=== PATIENT | male | born 1940 | race Caucasian/White ===

== ENCOUNTER 2016-08-12 13:32 | Emergency (ER) | payer MEDICARE ==
[~2016-08-12] VITALS: Ht 177.8 cm; Wt 93.0 kg
[2016-08-12 13:49] VITALS: BP 175/93; PULSE 64; RESP 16; TEMP 98.1; O2SAT 96
[2016-08-12] MEDS ORDERED: METO25TA6 PO (17:34)
[2016-08-12] MEDS ORDERED: LIPI10TA PO (17:34)
--- NOTE | 2016-08-12 17:46 | PD ---
HPI Chief Complaint: General Weakness Time Seen by Provider: 17:28 Travel History International Travel<30 days: No Contact w/Intl Traveler<30days: No Traveled to known affect area: No History of Present Illness HPI This 75-year-old male says that he felt lightheaded this morning. He stood up and felt very weak and had to lay down. He checked his blood pressure 190/90. He has a history of hypertension and has been given a prescription for metoprolol 25 mg but generally does not take it. He did take a tablet today he vomited when he got here and he vomited what he had had for breakfast. He had been having a lot of gas and burping. He had a stroke 3 or 4 years ago. He was in the hospital when he had a stroke and was treated with TPA with good results. He had a subsequent left carotid endarterectomy. He has not had any weakness today. He he does take aspirin daily. He did drive from [place] over the last 2 days, driving 11 hours a day [facility] Past Medical History Cardiovascular Problems: Yes (HTN ) High Cholesterol: Yes Cerebrovascular Accident: Yes Hypertension: Yes Inguinal Hernia: Yes Influenza Vaccination: No Past Surgical History Abdominal Surgery: Yes (INGUINAL HERNIA) Other Surgery: Yes (CAROTID ENDARTECTOMY) Social History Alcohol Use: No Tobacco Use: No Substance Use: No Allergies-Medications (Allergen,Severity, Reaction): Coded Allergies: Penicillin (Verified Allergy, Intermediate, Rash, 08/12/16) Reported Meds & Prescriptions Reported Meds & Active Scripts Active Reported Lipitor (Atorvastatin Calcium) 10 Mg Tab 10 Mg PO HS Metoprolol Succinate ER 24 HR (Metoprolol Succinate) 25 Mg Tab 25 Mg PO DAILY Review of Systems General / Constitutional: No: Fever, Chills Eyes: No: Diploplia, Blurred Vision HENT: Positive: Lightheadedness, No: Headaches Cardiovascular: No: Chest Pain or Discomfort, Palpitations Respiratory: No: Shortness of Breath Gastrointestinal: No: Nausea, Vomiting Genitourinary: No: Urgency Skin: No Rash Neurologic: Positive: Weakness, No: Syncope, Focal Abnormalities Hematologic/Lymphatic: No: Easy Bruising Physical Exam Narrative GENERAL: Well-developed male SKIN: Warm and dry. HEAD: Atraumatic. Normocephalic. EYES: Pupils equal and round. No scleral icterus. No injection or drainage. ENT: No nasal bleeding or discharge. Mucous membranes pink and moist. NECK: Trachea midline. No JVD. CARDIOVASCULAR: Regular rate and rhythm. No murmur appreciated. RESPIRATORY: No accessory muscle use. Clear to auscultation. Breath sounds equal bilaterally. GASTROINTESTINAL: Abdomen soft, non-tender, nondistended. Hepatic and splenic margins not palpable. MUSCULOSKELETAL: No obvious deformities. No clubbing. No cyanosis. No edema. NEUROLOGICAL: Awake and alert. No obvious cranial nerve deficits. Motor grossly within normal limits. Normal speech. PSYCHIATRIC: Appropriate mood and affect; insight and judgment normal. Data Data Last Documented VS Vital Signs Date Time Temp Pulse Resp B/P Pulse Ox O2 Delivery O2 Flow Rate FiO2 08/12/16 17:28 64 16 97 Room Air 08/12/16 13:49 98.1 175/93 Orders Electrocardiogram (08/12/16 17:41) Complete Blood Count With Diff (08/12/16 17:41) Comprehensive Metabolic Panel (08/12/16 17:41) Troponin I (08/12/16 17:41) Magnesium (Mg) (08/12/16 17:41) Labs Laboratory Tests Test 08/12/16 17:45 White Blood Count 11.0 TH/MM3 Red Blood Count 5.57 MIL/MM3 Hemoglobin 17.0 GM/DL Hematocrit 51.9 % Mean Corpuscular Volume 93.3 FL Mean Corpuscular Hemoglobin 30.6 PG Mean Corpuscular Hemoglobin 32.8 % Concent Red Cell Distribution Width 13.2 % Platelet Count 230 TH/MM3 Mean Platelet Volume 9.1 FL Neutrophils (%) (Auto) 89.1 % Lymphocytes (%) (Auto) 7.3 % Monocytes (%) (Auto) 3.2 % Eosinophils (%) (Auto) 0.2 % Basophils (%) (Auto) 0.2 % Neutrophils # (Auto) 9.8 TH/MM3 Lymphocytes # (Auto) 0.8 TH/MM3 Monocytes # (Auto) 0.4 TH/MM3 Eosinophils # (Auto) 0.0 TH/MM3 Basophils # (Auto) 0.0 TH/MM3 CBC Comment DIFF FINAL Differential Comment Sodium Level 141 MEQ/L Potassium Level 4.0 MEQ/L Chloride Level 106 MEQ/L Carbon Dioxide Level 26.2 MEQ/L Anion Gap 9 MEQ/L Blood Urea Nitrogen 13 MG/DL Creatinine 0.97 MG/DL Estimat Glomerular Filtration 75 ML/MIN Rate Random Glucose 123 MG/DL Calcium Level 8.8 MG/DL Magnesium Level 2.1 MG/DL Total Bilirubin 0.7 MG/DL Aspartate Amino Transf 13 U/L (AST/SGOT) Alanine Aminotransferase 24 U/L (ALT/SGPT) Alkaline Phosphatase 72 U/L Troponin I LESS THAN 0.02 NG/ML Total Protein 7.6 GM/DL Albumin 3.9 GM/DL MDM Medical Decision Making Medical Screen Exam Complete: Yes Emergency Medical Condition: Yes Medical Record Reviewed: Yes Differential Diagnosis Differential includes dehydration, electrolyte imbalance, generalized weakness Narrative Course Lab work is unremarkable. EKG shows normal sinus rhythm. While here the patient was feeling well. I suspect she may have been feeling weak secondary to fall drive he just completed there is no evidence of DVT and no shortness of breath. He does have some elevation of his blood pressure. He has a prescription for metoprolol he takes on an as needed basis. The metoprolol earlier today and his blood pressure is 170/81. I have recommended to him that he take the metoprolol daily Diagnosis Primary Impression: Hypertension Qualified Code: I10 - Essential hypertension Additional Instructions: Take metoprolol daily Disposition: DISCHARGE HOME Condition: Stable Moises Hoffman MD Aug 12, 2016 17:46
[2016-08-12 18:03] LABS: CHLORIDE 106 MEQ/L (98-107); SODIUM (NA) 141 MEQ/L (136-145)
[2016-08-12 18:07] LABS: ANION GAP 9 MEQ/L (5-15); BICARBONATE 26.2 MEQ/L (21.0-32.0); BLOOD UREA NITROGEN 13 MG/DL (7-18); MAGNESIUM 2.1 MG/DL (1.5-2.5)
[2016-08-12 18:10] LABS: ALT (GPT) 24 U/L (12-78); AST (GOT) 13 U/L (15-37); GLOMERULAR FILTRATION RATE 75 ML/MIN (>89)
[2016-08-12 18:11] LABS: TOTAL BILIRUBIN ADULT 0.7 MG/DL (0.2-1.0)
[2016-08-12 18:13] LABS: ALKALINE PHOSPHATASE 72 U/L (45-117)
[2016-08-12 18:32] LABS: AUTOMATED NEUTROPHIL # 9.8 TH/MM3 (1.8-7.7); BASOPHIL % 0.2 % (0.0-2.0); EOSINOPHIL % 0.2 % (0.0-4.0); HEMATOCRIT 51.9 % (39.0-51.0); HEMO FLAGS DIFF FINAL; LYMPH % 7.3 % (9.0-44.0); LYMPHOCYTE # 0.8 TH/MM3 (1.0-4.8); MEAN CELL VOLUME 93.3 FL (80.0-100.0); MEAN CORPUSCULAR HEMOGLOBIN 30.6 PG (27.0-34.0); MEAN CORPUSCULAR HGB CONC 32.8 % (32.0-36.0); MONO % 3.2 % (0.0-8.0); NEUT % 89.1 % (16.0-70.0); PLATELET COUNT 230 TH/MM3 (150-450); RED BLOOD COUNT 5.57 MIL/MM3 (4.50-5.90); RED CELL DISTRIBUTION WIDTH 13.2 % (11.6-17.2)
[2016-08-12 19:30] VITALS: BP 152/73
--- NOTE | 2016-08-13 17:07 | EKG ---
Date Performed: 08/12/2016 Time Performed: 17:45:26 PTAGE: 75 years EKG: Sinus rhythm Poor R wave progression - probable normal variant Borderline ECG NO PREVIOUS TRACING DOCTOR: Clay Small Interpretating Date/Time 08/13/2016 17:02:52
== END 2016-08-12 21:52 | disposition home or self-care (01) ==
LOC: PHED 13:32
DX: I10 Essential (primary) hypertension (principal); R53.1 Weakness; R42 Dizziness and giddiness; E78.00 Pure hypercholesterolemia, unspecified
CPT/HCPCS: 80053; 83735; 84484; 85025; 93005